=== PATIENT | female | born 1955 | race Caucasian/White ===

== ENCOUNTER → 2018-11-19 | Outpatient (CLI) | payer BC, OTHER | LOC: GMAE 15:03 | PROVIDERS: ATTEND Family Medicine | DX: R10.811 Right upper quadrant abdominal tenderness (principal) ==

== ENCOUNTER → 2018-11-21 | Outpatient (CLI) | payer BC, OTHER ==
--- NOTE | 2018-11-22 06:06 | US ---
EXAM DESCRIPTION: Abdomen,Limited: ULTRASOUND. CLINICAL HISTORY: ABN PN, AAA COMPARISON: None. TECHNIQUE: Transabdominal scanning: bravo-scale and Doppler modes. FINDINGS: Gallbladder: normal size, shape, echogenicity; no intraluminal stones or sludge. No fluid around the gallbladder. No wall thickening. 1.7 mm. Non-tender with transducer pressure. Common bile duct: caliber 4.2 mm within normal limits. Liver: normal echogenicity; contour liver capsule smooth where seen. No fluid around the liver. Intrahepatic biliary ducts normal caliber. Doppler hepatopedal flow and normal caliber portal vein.. Long axis right lobe 15.2 cm. Pancreas: normal size and echogenicity. Duct not seen. abdominal aorta: Normal caliber from the proximal segment to the distal bifurcation. Greatest diameter 2.2 cm. Atherosclerotic wall changes.. IVC: visualized and normal caliber. Right kidney: long axis measures 8.8 cm. Normal cortical Echogenicity. Normal cortical thickness. No hydronephrosis. IMPRESSION: Normal caliber of the aorta from the proximal segment to the distal bifurcation. Included abdominal organs are unremarkable. No ascites. Electronically signed by: Vinnie Ornelas MD 11/22/2018 6:05 AM CDT
== END ==
LOC: US 07:47
PROVIDERS: ATTEND Family Medicine
DX: R10.811 Right upper quadrant abdominal tenderness (principal)